=== PATIENT | female | born 1995 | race African-American/Black ===

== ENCOUNTER 2017-09-16 16:36 | Emergency (ER) | payer OTHER ==
[~2017-09-16] VITALS: Ht 157.5 cm; Wt 99.0 kg
[~2017-09-16 16:36] MED LIST: ALBUTEROL INHALER; iron
[2017-09-16 18:00] LABS: CHLORIDE 109 mEq/L (98-107)
[2017-09-16 18:02] LABS: BASOPHILS % 0.5 % (0.0-2.0); EOSINOPHILS % 1.9 % (0.0-5.0); HEMATOCRIT. 22.9 % (36.0-48.0); HEMOGLOBIN. 7.3 g/dL (12.0-16.0); LYMPHOCYTES % 23.8 % (20.0-50.0); MEAN CORPUSCULAR HEMOGLOBIN 26.1 pg (28.0-32.0); MEAN CORPUSCULAR VOLUME 82.3 fL (81.0-99.0); MEAN PLATELET VOLUME 7.6 fl (7.4-10.4); MONOCYTES % 4.7 % (2.0-8.0); NEUTROPHILS % 69.1 % (40.0-76.0); PLATELET 467 x1000/uL (130-400); RED BLOOD CELL COUNT 2.79 mill/uL (4.2-5.4); RED CELL DISTRIBUTION WIDTH 17.6 % (11.6-14.6)
[2017-09-16 18:03] LABS: PARTIAL THROMBOPLASTIN TIME 23.3 sec (23.4-31.0); PROTHROMBIN TIME 10.1 sec (9.4-11.6)
[2017-09-16 20:34] VITALS: BP 113/50
[2017-09-16 21:11] LABS: CLARITY URINE CLEAR (CLEAR); COLOR URINE RED (YELLOW); KETONES URINE TRACE (NEGATIVE); LEUKOCYTE ESTERASE URINE TRACE (NEGATIVE); NITRITE URINE NEGATIVE (NEGATIVE); OCCULT BLOOD URINE 3+ (NEGATIVE); PH URINE 6.5 (4.5-8.0); PROTEIN URINE 2+ (NEGATIVE); SPECIFIC GRAVITY URINE 1.024 (1.005-1.030); UROBILINOGEN URINE 0.2 E.U./dL (0.2-1.0)
== END 2017-09-16 21:16 | disposition home or self-care (01) ==
LOC: ER 18:30
DX: D50.9 Iron deficiency anemia, unspecified (principal); K21.9 Gastro-esophageal reflux disease without esophagitis; J45.909 Unspecified asthma, uncomplicated
CPT/HCPCS: 36415; 80053; 81003; 81025; 85025; 85610; 85730; 93005; 99285

== ENCOUNTER 2018-10-28 13:17 | Emergency (ER) | payer SELFPAY ==
[~2018-10-28] VITALS: Ht 157.5 cm; Wt 100.0 kg
[2018-10-28 15:36] LABS: CLARITY URINE TURBID (CLEAR); COLOR URINE RED (YELLOW); KETONES URINE 1+ (NEGATIVE); LEUKOCYTE ESTERASE URINE 1+ (NEGATIVE); NITRITE URINE NEGATIVE (NEGATIVE); OCCULT BLOOD URINE 3+ (NEGATIVE); PH URINE 5.5 (4.5-8.0); PROTEIN URINE 2+ (NEGATIVE); SPECIFIC GRAVITY URINE 1.029 (1.005-1.030)
[2018-10-28 16:12] VITALS: BP 143/85
== END 2018-10-28 16:14 | disposition home or self-care (01) ==
LOC: ER 13:17
DX: J06.9 Acute upper respiratory infection, unspecified (principal); J45.909 Unspecified asthma, uncomplicated; N39.0 Urinary tract infection, site not specified
CPT/HCPCS: 81003; 81025; 99283

== ENCOUNTER 2018-10-30 11:54 | Emergency (ER) | payer SELFPAY ==
[~2018-10-30] VITALS: Ht 157.5 cm; Wt 102.0 kg
[2018-10-30 15:20] VITALS: BP 117/65
== END 2018-10-30 15:24 | disposition home or self-care (01) ==
LOC: ER 11:54
DX: L50.0 Allergic urticaria (principal); R03.0 Elevated blood-pressure reading, without diagnosis of hypertension; N39.0 Urinary tract infection, site not specified; T37.8X5A Adverse effect of other specified systemic anti-infectives and antiparasitics, initial encounter; Y92.89 Other specified places as the place of occurrence of the external cause
CPT/HCPCS: 99283

== ENCOUNTER 2018-11-13 13:53 | Emergency (ER) | payer SELFPAY ==
[~2018-11-13] VITALS: Ht 157.5 cm; Wt 110.0 kg
[2018-11-13 17:06] VITALS: BP 126/77
== END 2018-11-13 17:17 | disposition home or self-care (01) ==
LOC: ER 13:53
DX: S50.861A Insect bite (nonvenomous) of right forearm, initial encounter (principal); L08.9 Local infection of the skin and subcutaneous tissue, unspecified; I10 Essential (primary) hypertension; W57.XXXA Bitten or stung by nonvenomous insect and other nonvenomous arthropods, initial encounter; Y93.89 Activity, other specified; Y92.89 Other specified places as the place of occurrence of the external cause; L29.9 Pruritus, unspecified
CPT/HCPCS: 99283; A4565

== ENCOUNTER 2018-12-07 12:41 | Emergency (ER) | payer SELFPAY ==
[~2018-12-07] VITALS: Ht 157.5 cm; Wt 103.0 kg
[2018-12-07 15:10] LABS: PROTHROMBIN TIME 10.1 sec (9.6-11.0)
[2018-12-07 15:11] LABS: CHLORIDE 110 mEq/L (98-107)
[2018-12-07 15:12] LABS: BASOPHILS % 0.5 % (0.0-2.0); EOSINOPHILS % 2.7 % (0.0-5.0); HEMATOCRIT. 23.7 % (36.0-48.0); HEMOGLOBIN. 7.6 g/dL (12.0-16.0); LYMPHOCYTES % 27.3 % (20.0-50.0); MEAN CORPUSCULAR HEMOGLOBIN 24.2 pg (28.0-32.0); MEAN CORPUSCULAR VOLUME 74.9 fL (81.0-99.0); MEAN PLATELET VOLUME 7.2 fl (7.4-10.4); MONOCYTES % 5.6 % (2.0-8.0); NEUTROPHILS % 63.9 % (40.0-76.0); PLATELET 514 x1000/uL (130-400); RED BLOOD CELL COUNT 3.16 mill/uL (4.2-5.4)
[2018-12-07 16:36] LABS: CLARITY URINE CLOUDY (CLEAR); COLOR URINE YELLOW (YELLOW); KETONES URINE NEGATIVE (NEGATIVE); LEUKOCYTE ESTERASE URINE NEGATIVE (NEGATIVE); NITRITE URINE NEGATIVE (NEGATIVE); OCCULT BLOOD URINE 3+ (NEGATIVE); PROTEIN URINE TRACE (NEGATIVE); UROBILINOGEN URINE 0.2 E.U./dL (0.2-1.0)
[2018-12-07] MEDS ORDERED: FLUCONAZOLE 100MG TABLET PO ONE (17:45)
[2018-12-07 18:39] VITALS: BP 120/62
== END 2018-12-07 18:40 | disposition home or self-care (01) ==
LOC: ER 12:41
DX: D53.9 Nutritional anemia, unspecified (principal); N39.0 Urinary tract infection, site not specified; B37.3 Candidiasis of vulva and vagina; N92.0 Excessive and frequent menstruation with regular cycle; R03.0 Elevated blood-pressure reading, without diagnosis of hypertension
CPT/HCPCS: 36415; 71045; 81003; 86850; 86900; 93005; 99284

== ENCOUNTER 2018-12-18 10:03 | Emergency (ER) | payer MEDICAID ==
[~2018-12-18] VITALS: Ht 157.5 cm; Wt 101.0 kg
[2018-12-18] MEDS ORDERED: SODIUM CHLORIDE 0.9% 1,000 ML IV ONE (11:46)
[2018-12-18 12:41] LABS: PROTHROMBIN TIME 10.5 sec (9.6-11.0)
[2018-12-18 12:42] LABS: BASOPHILS % 0.4 % (0.0-2.0); EOSINOPHILS % 4.8 % (0.0-5.0); HEMATOCRIT. 26.3 % (36.0-48.0); LYMPHOCYTES % 30.4 % (20.0-50.0); MEAN CORPUSCULAR HEMOGLOBIN 23.8 pg (28.0-32.0); MEAN CORPUSCULAR VOLUME 77.9 fL (81.0-99.0); MEAN PLATELET VOLUME 7.5 fl (7.4-10.4); MONOCYTES % 6.2 % (2.0-8.0); NEUTROPHILS % 58.2 % (40.0-76.0); PLATELET 438 x1000/uL (130-400); RED BLOOD CELL COUNT 3.38 mill/uL (4.2-5.4); RED CELL DISTRIBUTION WIDTH 20.7 % (11.6-14.6)
[2018-12-18 12:48] LABS: CHLORIDE 110 mEq/L (98-107)
[2018-12-18 13:30] VITALS: BP 108/51
[2018-12-18 14:15] LABS: HCG SCREEN NEGATIVE
== END 2018-12-18 13:52 | disposition home or self-care (01) ==
LOC: ER 10:03 → CANBEDREQ 18:28
DX: N92.0 Excessive and frequent menstruation with regular cycle (principal); D50.9 Iron deficiency anemia, unspecified
CPT/HCPCS: 36415; 80053; 84703; 85025; 85610; 86850; 86900; 86901; 99283; J7030

== ENCOUNTER 2018-12-31 01:38 | Emergency (ER) | payer MEDICAID ==
[~2018-12-31] VITALS: Ht 160 cm; Wt 103.0 kg
[2018-12-31] MEDS ORDERED: IPRATROPIUM/ALBUTEROL 0.5-3(2.5)MG/3ML NEB HHN ONE (04:30)
[2018-12-31] MEDS ORDERED: DEXAMETHASONE 4MG TABLET PO ONE (05:00)
[2018-12-31 06:33] VITALS: BP 115/68
== END 2018-12-31 06:46 | disposition home or self-care (01) ==
LOC: ER 01:38
DX: J45.909 Unspecified asthma, uncomplicated (principal)
CPT/HCPCS: 71045; 81025; 94640; 99283; J7620; J8540; Z7610